=== PATIENT | female | born 1975 | race Caucasian/White ===

== ENCOUNTER 2018-09-07 11:35 | Inpatient (IN) | payer OTHER ==
[2018-09-07 13:35] VITALS: BMI 27.8
--- NOTE | 2018-09-07 14:17 | HP ---
COWS - Scale Resting Pulse: 2= [place] 101-120 Sweatin= Chills/Flushing Restless Observation: 5= Unable to Sit Still Pupil Size: 0= Normal to Room Light Bone or Joint Aches: 1= Mild Discomfort Runny Nose/ Eye Tearin= Runny Nose/Eyes GI Upset > 30mins: 5=Frequent Vomit/Diarrhea Tremor Observation: 0= None Yawning Observation: 0= None Anxiety or Irritability: 1=Feels Anxious/Irritable Goose Flesh Skin: 0=Smooth Skin COWS Score: 17 CIWA Score - Admission Criteria [facility]ASAS Guidelines: Admission for Medically Managed Detox: Requires at least one of the followin. CIWA greater than 12 2. Seizures within the past 24 hours 3. Delirium tremens within the past 24 hours 4. Hallucinations within the past 24 hours 5. Acute intervention needed for co occurring medical disorder 6. Acute intervention needed for co occurring psychiatric disorder 7. Severe withdrawal that cannot be handled at a lower level of care (continued vomiting, continued diarrhea, abnormal vital signs) requiring intravenous medication and/or fluids 8. Admission ROS [facility] Allergies/Adverse Reactions: Allergies Allergy/AdvReac Type Severity Reaction Status Date / Time tomato Allergy Intermediate Verified 09/07/18 14:39 History of Present Illness: pt here requesting detox for heroin use , reports use since age 23 , intermittent sobriety 10 years w/ rehab / detox , latest use yesterday early evening , current symptoms as above, IVDU in left UE , denies abscess ., denies OD , needles from pharmacy - her own DM needles - , denies sharing , denies re-using . heroin use 40 $ /day = 5 bags/day . REPORTS BLACKOUT 2 WEEKS AGO , THOUGHT WAS USING CANNABIS , THINKS IT WAS K2 , WOKE UP W/ BLOODY KNUCKLES AND BLOOD ON CHIN, DENIES CURRENT SYMPTOMS. cocaine : 3 x 20 $ /day IVDU denies other illicitsor etoh tobacco : 1 ppd fen : denies PMhx : DM I since 2005 , FM , DM neuropathy, asthma since 2008 ( Nh/ NI ) . lmp - 4 YEARS AGO , ON iud - [facility]RENA PSHx : karissa 2004 , C-sx 2006 psych ; bipolar d/o , depression , bpd , sad , Meds - see list SHx : lives alone , public assistance , finances habit through " favors for people " , legal : children in foster care, ACS , court 10/22/18 , children ages 11 & 12 A & W Search Terms: ck turcios, 1975 Search Date: 09/07/2018 02:36:22 PM The Drug Utilization Report below displays all of the controlled substance prescriptions, if any, that your patient has filled in the last twelve months. The information displayed on this report is compiled from pharmacy submissions to the Department, and accurately reflects the information as submitted by the pharmacies. This report was requested by: Shilpi Page | Reference #: [id number] Others' Prescriptions Patient Name: Ck Turcios Date: 1975 Address: [address] [place] [address] Sex: Female Rx Written Rx Dispensed Drug Quantity Days Supply Prescriber Name 08/31/2018 08/31/2018 lyrica 150 mg capsule 90 30 Sharron Espinosa MD 08/03/2018 08/03/2018 lyrica 150 mg capsule 90 30 Sharron Espinosa MD Patient Name: Ck Turcios Date: 1975 Address: [address] [id number] Sex: Female Rx Written Rx Dispensed Drug Quantity Days Supply Prescriber Name 05/02/2018 05/04/2018 lyrica 150 mg capsule 90 30 Jeffy Pang) 02/19/2018 02/20/2018 lyrica 100 mg capsule 90 30 Gaston Martin) 01/19/2018 01/19/2018 lyrica 100 mg capsule 90 30 Gaston Martin) 01/11/2018 01/11/2018 zolpidem tartrate 10 mg tablet 30 30 Rabia Valderrama MD * - Drugs marked with an asterisk are compound drugs. If the compound drug is made up of more than one controlled substance, then each controlled substance will be a separate row in the table. Exam Limitations: Clinical Condition - Ebola screening Have you traveled outside of the country in the last 21 days: No Have you had contact with anyone from an Ebola affected area: No Have you been sick,other than usual withdrawal symptoms: No - Review of Systems Constitutional: See HPI EENT: reports: See HPI, Nose Congestion, Other (myopia) Respiratory: reports: No Symptoms reported Cardiac: reports: No Symptoms Reported GI: reports: See HPI : reports: No Symptoms Reported Musculoskeletal: reports: See HPI Integumentary: reports: See HPI Neuro: reports: Headache Endocrine: reports: See HPI Psychiatric: reports: Orientated x3, Agitated, Anxious Patient History - Smoking Cessation Smoking history: Current every day smoker Have you smoked in the past 12 months: Yes Aproximately how many cigarettes per day: 20 Hx Chewing Tobacco Use: No Initiated information on smoking cessation: No - Substances Abused Heroin Route: Injection Frequency: Daily Amount used: 4-5 bags Age of first use: 24 Date of Last Use: 09/06/18 Cocaine Route: Injection Frequency: 1-2 times per week Amount used: $40 Age of first use: 19 Date of Last Use: 09/06/18 Family Disease History - Family Disease History Family Disease History: Diabetes: Grandparent (MGM ), Other: Mother (PUD ), Sister (1 , a & w ), Son (a & w ), Daughter (a & w ) Admission Physical Exam [facility] - Vital Signs Vital Signs: Vital Signs - 24 hr 09/07/18 13:34 Temperature 97.5 F L Pulse Rate 109 H Respiratory 20 Rate Blood Pressure 117/84 - Physical General Appearance: Yes: Severe Distress, Anxious HEENTM: Yes: EOMI, Hearing grossly Normal, Normocephalic, Normal Voice, Nasal Congestion, Rhinorrhea Respiratory: Yes: Chest Non-Tender, Lungs Clear, Normal Breath Sounds Neck: Yes: No masses,lesions,Nodules, Trachea in good position Cardiology: Yes: Regular Rhythm, Regular Rate, S1, S2, Tachycardia Abdominal: Yes: Non Tender, Soft Back: Yes: Normal Inspection Musculoskeletal: Yes: full range of Motion, Gait Steady Extremities: Yes: Normal Range of Motion, Non-Tender, Tremors Neurological: Yes: Motor Strength 5/5, Normal Mood/Affect Integumentary: Yes: Warm, Track [place] (LEFT FOREARM / ANTECUBITAL, NO ABSCESS) , Other (excoriations on dorsum of bilateral hands , superficial) - Diagnostic (1) Opioid dependence Current Visit: Yes Status: Acute Qualifiers: Substance use status: in withdrawal Qualified Code(s): F11.23 - Opioid dependence with withdrawal (2) Cocaine abuse Current Visit: Yes Status: Chronic (3) Nicotine dependence Current Visit: Yes Status: Chronic Qualifiers: Nicotine product type: cigarettes BHS Breath Alcohol Content Breath Alcohol Content: 0 Urine Pregancy Test - Result Urine Test Results: Negative - NO line present Urine Drug Screen - Results Drug Screen Negative: No Urine Drug Screen Results: MANDO-Cocaine, OPI-Opiates, FEN-Fentanyl Inpatient Rehab Admission - Rehab Decision to Admit Inpatient rehab admission?: No
[2018-09-07] MEDS ORDERED: METHOCARBAMOL 500 MG TABLET PO PRN (15:04)
[2018-09-07] MEDS ORDERED: ACETAMINOPHEN 325 MG TABLET (FP) PO PRN ×2 (15:04)
[2018-09-07] MEDS ORDERED: MAG HYDROX/AL HYDROX/SIMETH 30 ML UNIT-DOSE CUP PO PRN (15:04)
[2018-09-07] MEDS ORDERED: MAGNESIUM CITRATE 300 ML BOTTLE PO PRN (15:04)
[2018-09-07] MEDS ORDERED: NICOTINE POLACRILEX 2 MG GUM BUC PRN (15:04)
[2018-09-07] MEDS ORDERED: IBUPROFEN 400 MG TABLET (FP) PO PRN (15:04)
[2018-09-07] MEDS ORDERED: MAGNESIUM HYDROX 2400MG/30ML ORAL SUSPENSION 30 ML CUP PO PRN (15:04)
[2018-09-07] MEDS ORDERED: MENTHOL/PHENOL 1 EACH UD MM PRN (15:04)
[2018-09-07] MEDS ORDERED: cloNIDine HCL 0.1 MG TABLET PO PRN (15:04)
[2018-09-07] MEDS ORDERED: METHADONE HCL 10 MG TABLET (FOR DETOX USE ONLY) PO ONE (15:06)
[2018-09-07] MEDS ORDERED: ONDANSETRON *ODT* 4 MG TABLET SL ONE (15:07)
[2018-09-07] MEDS: metFORMIN HCL 500 MG TABLET (FP) PO SCH (18:11)
[2018-09-07] MEDS ORDERED: INSULIN SLIDING SCALE (NOVOLOG) 1 VIAL SQ SCH (22:00)
[2018-09-07] MEDS ORDERED: INSULIN (NOVOLOG) ASPART 100 UNITS/ML 10ML VIAL ONE (22:32)
[2018-09-07] MEDS: PREGABALIN 75 MG CAPSULE PO SCH (22:33)
[2018-09-07] MEDS: THIAMINE HCL 100 MG TABLET (FP) PO SCH (22:33)
[2018-09-07] MEDS: RANITIDINE HCL 150 MG TABLET (FP) PO SCH (22:34)
[2018-09-07] MEDS: INSULIN (LEVEMIR) 100 UNITS/ML UNITS SQ SCH (22:34)
[2018-09-07] MEDS: INSULIN SLIDING SCALE (NOVOLOG) 1 VIAL SQ SCH (22:34)
[2018-09-07] MEDS: MELATONIN 5 MG TABLETS PO PRN (22:35)
[2018-09-08] MEDS: PREGABALIN 75 MG CAPSULE PO SCH ×3 (05:29→22:13)
[2018-09-08] MEDS: INSULIN SLIDING SCALE (NOVOLOG) 1 VIAL SQ SCH ×4 (07:35→21:48)
[2018-09-08] MEDS: metFORMIN HCL 500 MG TABLET (FP) PO SCH ×2 (07:35→17:17)
[2018-09-08] MEDS: sitaGLIPtin PHOSPHATE 100 MG TABLET (FP) PO SCH (07:35)
[2018-09-08] MEDS ORDERED: METHADONE HCL 10 MG TABLET (FOR DETOX USE ONLY) PO ONE (10:00)
[2018-09-08] MEDS: PANTOPRAZOLE 40 MG TABLET (FP) PO SCH (10:31)
[2018-09-08] MEDS: PRENATAL VITAMINS W/ FOLIC ACID TABLET (FP) PO SCH (10:31)
[2018-09-08] MEDS: RANITIDINE HCL 150 MG TABLET (FP) PO SCH ×2 (10:31→22:13)
[2018-09-08 11:02] LABS: HEMATOCRIT 43.9 % (32.4-45.2); HEMOGLOBIN 14.5 GM/dL (10.7-15.3); MCH 30.4 pg (25.7-33.7); MEAN CELL VOLUME 91.9 fl (80-96); MEAN PLT VOLUME 9.6 fl (7.5-11.1); PLATELET COUNT 236 K/MM3 (134-434); RBC 4.78 M/mm3 (3.60-5.2); RDW 13.7 % (11.6-15.6); WHITE BLOOD COUNT 12.2 K/mm3 (4.0-10.0)
[2018-09-08 11:08] LABS: ALBUMIN 3.1 g/dl (3.4-5.0); ALK PHOS 81 U/L (45-117); ANION GAP 7 MMOL/L (8-16); BILIRUBIN,TOTAL 0.4 mg/dL (0.2-1); BLOOD UREA NITROGEN 10 mg/dL (7-18); CALCIUM 9.1 mg/dL (8.5-10.1); CHLORIDE 102 mmol/L (98-107); CO2 30 mmol/L (21-32); CREATININE 0.5 mg/dL (0.55-1.3); GLUCOSE,RANDOM 82 mg/dL (74-106); POTASSIUM 3.6 mmol/L (3.5-5.1); SGOT/AST 10 U/L (15-37); SGPT/ALT 15 U/L (13-61); SODIUM 138 mmol/L (136-145); TOT PROT 6.1 g/dl (6.4-8.2)
--- NOTE | 2018-09-08 13:37 | CONSULT ---
[facility] Psychiatric Consult - Data Date of interview: 09/08/18 Admission source: [facility] Identifying data: First admission to [facility] for this 43 y/o female self-referred for detoxification treatment (heroin, cocaine). Examined on . Patient is single, a mother of two, domiciled, unemployed and supported on Public Assistance. Substance Abuse History: Confirmed by the patient. Ms Turcios endorses an extensive history of subtance use (onset of cocaine abuse at age 19 + heroin abuse since age 24). Both drugs are used IVDU. patient smokes one pack of cigaretes daily. Additional details in current [facility] report as follows : Smoking Cessation. Smoking history: Current every day smoker. Have you smoked in the past 12 months: Yes. Aproximately how many cigarettes per day: 20. Hx Chewing Tobacco Use: No. Initiated information on smoking cessation: No. - Substances Abused. Heroin. Route: Injection. Frequency: Daily. Amount used: 4-5 bags. Age of first use: 24. Date of Last Use: 09/06/18. Cocaine. Route: Injection. Frequency: 1-2 times per week. Amount used: $40. Age of first use : 19. Date of Last Use: 09/06/18 Medical History: Consistent with diabetes mellitus, bronchial asthma fibromyalgia and peripheral neuropathy. Psychiatric History: Patient reports a history of 3-5 psychiatric hospitalizations ([facility], [facility]). First psychiatric hospitalization was in 2017 (self-report). Diagnosed with Schizoaffective Disorder + PTSD. Ms Turcios endorses treatment with lithium 600 mg /bid + risperdal 3 mg/bid + klonopin (dose unknown) and zolpidem 10 mg/hs. Sees a psychiatrist, Dr French, at [facility] at [address] [place] [address] in [facility]. Physical/Sexual Abuse/Trauma History: Not discussed. Patient declines. Additional Comment: Urine Drug Screen Results: MANDO-Cocaine, OPI-Opiates, FEN- Fentanyl. Noted. Mental Status Exam - Mental Status Exam Alert and Oriented to: Time, Place, Person Cognitive Function: Good Patient Appearance: Well Groomed Mood: Nervous, Withdrawn, Anxious Affect: Mood Congruent, Constricted Patient Behavior: Fatigued, Appropriate, Cooperative Speech Pattern: Clear Voice Loudness: Normal Thought Process: Goal Oriented Thought Disorder: Not Present Hallucinations: Denies Suicidal Ideation: Denies Homicidal Ideation: Denies Insight/Judgement: Poor Sleep: Poorly, Difficulty falling asleep Appetite: Good Gait/Station: Normal Psychiatric Findings - Problem List (Flushing 1, 2,3) (1) Opioid dependence Current Visit: Yes Status: Chronic Qualifiers: Substance use status: in withdrawal Qualified Code(s): F11.23 - Opioid dependence with withdrawal (2) Nicotine dependence Current Visit: Yes Status: Chronic Qualifiers: Nicotine product type: cigarettes (3) Cocaine dependence Current Visit: Yes Status: Chronic (4) Substance induced mood disorder Current Visit: Yes Status: Chronic (5) Schizoaffective disorder Current Visit: Yes Status: Chronic Comment: By history. On medications. (6) History of posttraumatic stress disorder (PTSD) Current Visit: Yes Status: Chronic (7) Insomnia Current Visit: Yes Status: Chronic - Initial Treatment Plan Initial Treatment Plan: Psychoeducation. Sleep hygiene. Detoxification. NA meetings. Support. Groups. Relapse prevention : discussed with patient. Medications confirmed via review of most recent pharmacy claims (noted refills for lithium, trileptal, risperdal issued on 09/03/[address] Joshua kang) . [place] is held (level is requested/pending). Resumed risperdal 2 mg po hs + 1 mg po am and oxcarbazepine 600 mg po bid. Side effects/benefits of both drugs are discussed with the patient. This includes the risk of abnormal involuntary movements, endocrine issues (galactorrhea, gynecomastia, sexual dysfunction), akathisia, dyskinesia, neuroleptic malignant syndrome, cardiovascular adverse events and hyponatremia (trileptal). Patient expressed her agreement with this plan of care. Consent (verbal) given to MD. Terrell.
--- NOTE | 2018-09-08 14:56 | PN ---
S COWS - Scale Resting Pulse: 1= [place] 81-100 Sweatin=Flushed/Facial Moisture Restless Observation: 1= Difficult to Sit Still Pupil Size: 0= Normal to Room Light Bone or Joint Aches: 2= Severe Diffuse Aches Runny Nose/ Eye Tearin= Nasal Congestion GI Upset > 30mins: 2= Nausea/Diarrhea Tremor Observation of Outstretched Hands: 2= Slight Tremor Visible Yawning Observation: 0= None Anxiety or Irritability: 2=Irritable/Anxious Goose Flesh Skin: 3=Piloerection COWS Score: 16 BHS Progress Note (SOAP) Subjective: Tremors, sweats, body aches, nausea Objective: 09/08/18 14:53 Vital Signs - 8 hr 09/08/18 09/08/18 09/08/18 08:34 09:47 14:36 Temperature 98.1 F 98.2 F 98.4 F Pulse Rate 95 H 107 H 96 H Respiratory 20 16 18 Rate Blood Pressure 106/71 107/75 122/69 Laboratory Last Values WBC 12.2 K/mm3 (4.0-10.0) H 09/08/18 07:45 RBC 4.78 M/mm3 (3.60-5.2) 09/08/18 07:45 Hgb 14.5 GM/dL (10.7-15.3) 09/08/18 07:45 Hct 43.9 % (32.4-45.2) 09/08/18 07:45 MCV 91.9 fl (80-96) 09/08/18 07:45 MCH 30.4 pg (25.7-33.7) 09/08/18 07:45 MCHC 33.0 g/dl (32.0-36.0) 09/08/18 07:45 RDW 13.7 % (11.6-15.6) 09/08/18 07:45 Plt Count 236 K/MM3 (134-434) 09/08/18 07:45 MPV 9.6 fl (7.5-11.1) 09/08/18 07:45 Sodium 138 mmol/L (136-145) 09/08/18 07:45 Potassium 3.6 mmol/L (3.5-5.1) 09/08/18 07:45 Chloride 102 mmol/L (98-107) 09/08/18 07:45 Carbon Dioxide 30 mmol/L (21-32) 09/08/18 07:45 Anion Gap 7 MMOL/L (8-16) L 09/08/18 07:45 BUN 10 mg/dL (7-18) 09/08/18 07:45 Creatinine 0.5 mg/dL (0.55-1.3) L 09/08/18 07:45 Creat Clearance w eGFR 135.97 (>60) 09/08/18 07:45 POC Glucometer 186 UNITS (80-120) 09/08/18 11:39 Random Glucose 82 mg/dL (74-106) 09/08/18 07:45 Calcium 9.1 mg/dL (8.5-10.1) 09/08/18 07:45 Total Bilirubin 0.4 mg/dL (0.2-1) 09/08/18 07:45 AST 10 U/L (15-37) L 09/08/18 07:45 ALT 15 U/L (13-61) 09/08/18 07:45 Alkaline Phosphatase 81 U/L (45-117) 09/08/18 07:45 Total Protein 6.1 g/dl (6.4-8.2) L 09/08/18 07:45 Albumin 3.1 g/dl (3.4-5.0) L 09/08/18 07:45 RPR Titer Nonreactive (NONREACTIVE) 09/08/18 07:45 Labs noted Elevated white count, denies symptoms VSS, no cough, dysurea or open wounds Assessment: 09/08/18 14:55 Withdrawal sx Leukocytosis Plan: Continue detox Increase PO fluids Repeat CBC UA pending
[2018-09-08] MEDS ORDERED: INSULIN (NOVOLOG) ASPART 100 UNITS/ML 10ML VIAL ONE (17:52)
[2018-09-08] MEDS ORDERED: OXCARBAZEPINE 600 MG PO SCH (22:00)
[2018-09-08] MEDS: INSULIN (LEVEMIR) 100 UNITS/ML UNITS SQ SCH (22:13)
[2018-09-08] MEDS: risperiDONE 2 MG TABLET PO SCH (22:13)
[2018-09-08] MEDS: THIAMINE HCL 100 MG TABLET (FP) PO SCH (22:13)
[2018-09-08] MEDS: MELATONIN 5 MG TABLETS PO PRN (22:14)
[2018-09-09] MEDS: PREGABALIN 75 MG CAPSULE PO SCH ×3 (05:54→22:02)
[2018-09-09] MEDS: sitaGLIPtin PHOSPHATE 100 MG TABLET (FP) PO SCH (08:11)
[2018-09-09] MEDS: metFORMIN HCL 500 MG TABLET (FP) PO SCH ×2 (08:11→17:57)
[2018-09-09] MEDS: INSULIN SLIDING SCALE (NOVOLOG) 1 VIAL SQ SCH ×4 (08:12→22:04)
[2018-09-09] MEDS ORDERED: METHADONE HCL 10 MG TABLET (FOR DETOX USE ONLY) PO ONE (10:00)
[2018-09-09] MEDS: PANTOPRAZOLE 40 MG TABLET (FP) PO SCH (10:26)
[2018-09-09] MEDS: risperiDONE 1 MG TABLET (FP) PO SCH (10:26)
[2018-09-09] MEDS: RANITIDINE HCL 150 MG TABLET (FP) PO SCH ×2 (10:26→22:02)
[2018-09-09] MEDS: PRENATAL VITAMINS W/ FOLIC ACID TABLET (FP) PO SCH (10:26)
[2018-09-09] MEDS ORDERED: INSULIN (NOVOLOG) ASPART 100 UNITS/ML 10ML VIAL ONE ×3 (11:12→22:58)
[2018-09-09] MEDS ORDERED: NYSTATIN 100,000 UNIT/GM TOPICAL CREAM 15 GM TUBE TP SCH (12:00)
--- NOTE | 2018-09-09 13:49 | PN ---
BHS COWS - Scale Resting Pulse: 1= [place] 81-100 Sweatin=Flushed/Facial Moisture Restless Observation: 1= Difficult to Sit Still Pupil Size: 0= Normal to Room Light Bone or Joint Aches: 2= Severe Diffuse Aches Runny Nose/ Eye Tearin= Runny Nose/Eyes GI Upset > 30mins: 0= None Tremor Observation of Outstretched Hands: 2= Slight Tremor Visible Yawning Observation: 1= 1-2x During Session Anxiety or Irritability: 1=Feels Anxious/Irritable Goose Flesh Skin: 0=Smooth Skin COWS Score: 12 BHS Progress Note (SOAP) Subjective: shakes sweats body aches right upper arm rash Objective: 09/09/18 13:48 Vital Signs Temperature 98.2 F 09/09/18 10:03 Pulse Rate 89 09/09/18 10:03 Respiratory Rate 18 09/09/18 10:03 Blood Pressure 102/74 09/09/18 10:03 O2 Sat by Pulse Oximetry (%) Laboratory Tests 09/07/18 09/07/18 09/07/18 15:02 18:08 21:25 WBC RBC Hgb Hct MCV MCH MCHC RDW Plt Count MPV Sodium Potassium Chloride Carbon Dioxide Anion Gap BUN Creatinine Creat Clearance w eGFR POC Glucometer 274 360 291 Random Glucose Calcium Total Bilirubin AST ALT Alkaline Phosphatase Total Protein Albumin Urine Color Urine Appearance Urine pH Ur Specific [place] Urine Protein Urine Glucose (UA) Urine Ketones Urine Blood Urine Nitrite Urine Bilirubin Urine Urobilinogen Ur Leukocyte Esterase RPR Titer 09/08/18 09/08/18 09/08/18 05:28 07:45 07:45 WBC 12.2 H RBC 4.78 Hgb 14.5 Hct 43.9 MCV 91.9 MCH 30.4 MCHC 33.0 RDW 13.7 Plt Count 236 MPV 9.6 Sodium 138 Potassium 3.6 Chloride 102 Carbon Dioxide 30 Anion Gap 7 L BUN 10 Creatinine 0.5 L Creat Clearance w eGFR 135.97 POC Glucometer 97 Random Glucose 82 Calcium 9.1 Total Bilirubin 0.4 AST 10 L ALT 15 Alkaline Phosphatase 81 Total Protein 6.1 L Albumin 3.1 L Urine Color Urine Appearance Urine pH Ur Specific [place] Urine Protein Urine Glucose (UA) Urine Ketones Urine Blood Urine Nitrite Urine Bilirubin Urine Urobilinogen Ur Leukocyte Esterase RPR Titer 09/08/18 09/08/18 09/08/18 07:45 11:39 16:22 WBC RBC Hgb Hct MCV MCH MCHC RDW Plt Count MPV Sodium Potassium Chloride Carbon Dioxide Anion Gap BUN Creatinine Creat Clearance w eGFR POC Glucometer 186 298 Random Glucose Calcium Total Bilirubin AST ALT Alkaline Phosphatase Total Protein Albumin Urine Color Urine Appearance Urine pH Ur Specific [place] Urine Protein Urine Glucose (UA) Urine Ketones Urine Blood Urine Nitrite Urine Bilirubin Urine Urobilinogen Ur Leukocyte Esterase RPR Titer Nonreactive 09/08/18 09/09/18 09/09/18 21:38 06:47 07:50 WBC RBC Hgb Hct MCV MCH MCHC RDW Plt Count MPV Sodium Potassium Chloride Carbon Dioxide Anion Gap BUN Creatinine Creat Clearance w eGFR POC Glucometer 183 114 Random Glucose Calcium Total Bilirubin AST ALT Alkaline Phosphatase Total Protein Albumin Urine Color Yellow Urine Appearance Clear Urine pH 6.5 Ur Specific [place] 1.007 L Urine Protein Negative Urine Glucose (UA) Negative Urine Ketones Negative Urine Blood Negative Urine Nitrite Negative Urine Bilirubin Negative Urine Urobilinogen 0.2 Ur Leukocyte Esterase 1+ H RPR Titer 09/09/18 11:08 WBC RBC Hgb Hct MCV MCH MCHC RDW Plt Count MPV Sodium Potassium Chloride Carbon Dioxide Anion Gap BUN Creatinine Creat Clearance w eGFR POC Glucometer 232 Random Glucose Calcium Total Bilirubin AST ALT Alkaline Phosphatase Total Protein Albumin Urine Color Urine Appearance Urine pH Ur Specific [place] Urine Protein Urine Glucose (UA) Urine Ketones Urine Blood Urine Nitrite Urine Bilirubin Urine Urobilinogen Ur Leukocyte Esterase RPR Titer aaox3 ambulating no acute distress Assessment: 09/09/18 13:48 withdrawal sx rash to right upper arm appears to be a ringworm/red and circular Plan: continue detox increase fluids lotrimin cream ordered
[2018-09-09 14:23] LABS: PH,URINE 6.5 (5.0-8.0); URINE APPEARANCE Clear; URINE BILIRUBIN Negative (NEGATIVE); URINE COLOR Yellow; URINE GLUCOSE (UA) Negative (NEGATIVE); URINE KETONE Negative (NEGATIVE); URINE LEUK ESTERASE 1+ (NEGATIVE); URINE NITRITE Negative (NEGATIVE); URINE PROTEIN Negative (NEGATIVE); URINE UROBILINOGEN 0.2 mg/dL (0.2-1.0)
[2018-09-09 14:56] LABS: EPI CELLS 0-5 /HPF (0-5); URINE BACTERIA 1+ /hpf (NEGATIVE); URINE RBC 0-3 /hpf (0-4); URINE WBC 0-5 /hpf (0-5)
[2018-09-09] MEDS: CLOTRIMAZOLE 1% CREAM 15 GM TUBE TP SCH ×2 (16:07→22:04)
[2018-09-09] MEDS: MELATONIN 5 MG TABLETS PO PRN (22:02)
[2018-09-09] MEDS: THIAMINE HCL 100 MG TABLET (FP) PO SCH (22:02)
[2018-09-09] MEDS: risperiDONE 2 MG TABLET PO SCH (22:02)
[2018-09-09] MEDS: INSULIN (LEVEMIR) 100 UNITS/ML UNITS SQ SCH (22:03)
[2018-09-10] MEDS: sitaGLIPtin PHOSPHATE 100 MG TABLET (FP) PO SCH (06:15)
[2018-09-10] MEDS: PREGABALIN 75 MG CAPSULE PO SCH ×3 (06:15→22:18)
[2018-09-10] MEDS: metFORMIN HCL 500 MG TABLET (FP) PO SCH ×2 (06:15→16:58)
[2018-09-10] MEDS: INSULIN SLIDING SCALE (NOVOLOG) 1 VIAL SQ SCH ×4 (06:59→22:22)
[2018-09-10] MEDS ORDERED: METHADONE HCL 10 MG TABLET (FOR DETOX USE ONLY) PO ONE (10:00)
[2018-09-10 10:04] LABS: BASO % 0.3 % (0-2.0); HEMATOCRIT 43.8 % (32.4-45.2); HEMOGLOBIN 14.4 GM/dL (10.7-15.3); LYMPH % 41.7 % (8-40); MCH 30.8 pg (25.7-33.7); MCHC 32.8 g/dl (32.0-36.0); MEAN CELL VOLUME 93.9 fl (80-96); MEAN PLT VOLUME 9.6 fl (7.5-11.1); MONO % 7.3 % (3.8-10.2); NEUT % 48.7 % (42.8-82.8); PLATELET COUNT 222 K/MM3 (134-434); RBC 4.67 M/mm3 (3.60-5.2); RDW 13.7 % (11.6-15.6); WHITE BLOOD COUNT 10.9 K/mm3 (4.0-10.0)
[2018-09-10] MEDS: CLOTRIMAZOLE 1% CREAM 15 GM TUBE TP SCH ×2 (10:15→22:17)
[2018-09-10] MEDS: PANTOPRAZOLE 40 MG TABLET (FP) PO SCH (10:15)
[2018-09-10] MEDS: risperiDONE 1 MG TABLET (FP) PO SCH (10:15)
[2018-09-10] MEDS: RANITIDINE HCL 150 MG TABLET (FP) PO SCH ×2 (10:15→22:18)
[2018-09-10] MEDS: PRENATAL VITAMINS W/ FOLIC ACID TABLET (FP) PO SCH (10:15)
--- NOTE | 2018-09-10 10:29 | PN ---
BHS Progress Note (SOAP) Subjective: blister on my finger burst feeling better sweats Objective: 09/10/18 10:24 Vital Signs Temperature 98.8 F 09/10/18 08:58 Pulse Rate 96 H 09/10/18 08:58 Respiratory Rate 18 09/10/18 08:58 Blood Pressure 98/67 09/10/18 08:58 O2 Sat by Pulse Oximetry (%) Laboratory Tests 09/07/18 09/07/18 09/07/18 15:02 18:08 21:25 WBC RBC Hgb Hct MCV MCH MCHC RDW Plt Count MPV Absolute Neuts (auto) Neutrophils % Lymphocytes % Monocytes % Eosinophils % Basophils % Nucleated RBC % Sodium Potassium Chloride Carbon Dioxide Anion Gap BUN Creatinine Creat Clearance w eGFR POC Glucometer 274 360 291 Random Glucose Calcium Total Bilirubin AST ALT Alkaline Phosphatase Total Protein Albumin Urine Color Urine Appearance Urine pH Ur Specific [place] Urine Protein Urine Glucose (UA) Urine Ketones Urine Blood Urine Nitrite Urine Bilirubin Urine Urobilinogen Ur Leukocyte Esterase Urine WBC (Auto) Urine RBC (Auto) Urine Casts (Auto) U Epithel Cells (Auto) Urine Bacteria (Auto) RPR Titer 09/08/18 09/08/18 09/08/18 05:28 07:45 07:45 WBC 12.2 H RBC 4.78 Hgb 14.5 Hct 43.9 MCV 91.9 MCH 30.4 MCHC 33.0 RDW 13.7 Plt Count 236 MPV 9.6 Absolute Neuts (auto) Neutrophils % Lymphocytes % Monocytes % Eosinophils % Basophils % Nucleated RBC % Sodium 138 Potassium 3.6 Chloride 102 Carbon Dioxide 30 Anion Gap 7 L BUN 10 Creatinine 0.5 L Creat Clearance w eGFR 135.97 POC Glucometer 97 Random Glucose 82 Calcium 9.1 Total Bilirubin 0.4 AST 10 L ALT 15 Alkaline Phosphatase 81 Total Protein 6.1 L Albumin 3.1 L Urine Color Urine Appearance Urine pH Ur Specific [place] Urine Protein Urine Glucose (UA) Urine Ketones Urine Blood Urine Nitrite Urine Bilirubin Urine Urobilinogen Ur Leukocyte Esterase Urine WBC (Auto) Urine RBC (Auto) Urine Casts (Auto) U Epithel Cells (Auto) Urine Bacteria (Auto) RPR Titer 09/08/18 09/08/18 09/08/18 07:45 11:39 16:22 WBC RBC Hgb Hct MCV MCH MCHC RDW Plt Count MPV Absolute Neuts (auto) Neutrophils % Lymphocytes % Monocytes % Eosinophils % Basophils % Nucleated RBC % Sodium Potassium Chloride Carbon Dioxide Anion Gap BUN Creatinine Creat Clearance w eGFR POC Glucometer 186 298 Random Glucose Calcium Total Bilirubin AST ALT Alkaline Phosphatase Total Protein Albumin Urine Color Urine Appearance Urine pH Ur Specific [place] Urine Protein Urine Glucose (UA) Urine Ketones Urine Blood Urine Nitrite Urine Bilirubin Urine Urobilinogen Ur Leukocyte Esterase Urine WBC (Auto) Urine RBC (Auto) Urine Casts (Auto) U Epithel Cells (Auto) Urine Bacteria (Auto) RPR Titer Nonreactive 09/08/18 09/09/18 09/09/18 21:38 06:47 07:50 WBC RBC Hgb Hct MCV MCH MCHC RDW Plt Count MPV Absolute Neuts (auto) Neutrophils % Lymphocytes % Monocytes % Eosinophils % Basophils % Nucleated RBC % Sodium Potassium Chloride Carbon Dioxide Anion Gap BUN Creatinine Creat Clearance w eGFR POC Glucometer 183 114 Random Glucose Calcium Total Bilirubin AST ALT Alkaline Phosphatase Total Protein Albumin Urine Color Yellow Urine Appearance Clear Urine pH 6.5 Ur Specific [place] 1.010 Urine Protein Negative Urine Glucose (UA) Negative Urine Ketones Negative Urine Blood Negative Urine Nitrite Negative Urine Bilirubin Negative Urine Urobilinogen 0.2 Ur Leukocyte Esterase 1+ H Urine WBC (Auto) 0-5 Urine RBC (Auto) 0-3 Urine Casts (Auto) No Result Required. U Epithel Cells (Auto) 0-5 Urine Bacteria (Auto) 1+ RPR Titer 09/09/18 09/09/18 09/10/18 11:08 21:58 06:14 WBC RBC Hgb Hct MCV MCH MCHC RDW Plt Count MPV Absolute Neuts (auto) Neutrophils % Lymphocytes % Monocytes % Eosinophils % Basophils % Nucleated RBC % Sodium Potassium Chloride Carbon Dioxide Anion Gap BUN Creatinine Creat Clearance w eGFR POC Glucometer 232 316 87 Random Glucose Calcium Total Bilirubin AST ALT Alkaline Phosphatase Total Protein Albumin Urine Color Urine Appearance Urine pH Ur Specific [place] Urine Protein Urine Glucose (UA) Urine Ketones Urine Blood Urine Nitrite Urine Bilirubin Urine Urobilinogen Ur Leukocyte Esterase Urine WBC (Auto) Urine RBC (Auto) Urine Casts (Auto) U Epithel Cells (Auto) Urine Bacteria (Auto) RPR Titer 09/10/18 07:00 WBC 10.9 H RBC 4.67 Hgb 14.4 Hct 43.8 MCV 93.9 MCH 30.8 MCHC 32.8 RDW 13.7 Plt Count 222 MPV 9.6 Absolute Neuts (auto) 5.3 Neutrophils % 48.7 Lymphocytes % 41.7 H Monocytes % 7.3 Eosinophils % 2.0 Basophils % 0.3 Nucleated RBC % 0 Sodium Potassium Chloride Carbon Dioxide Anion Gap BUN Creatinine Creat Clearance w eGFR POC Glucometer Random Glucose Calcium Total Bilirubin AST ALT Alkaline Phosphatase Total Protein Albumin Urine Color Urine Appearance Urine pH Ur Specific [place] Urine Protein Urine Glucose (UA) Urine Ketones Urine Blood Urine Nitrite Urine Bilirubin Urine Urobilinogen Ur Leukocyte Esterase Urine WBC (Auto) Urine RBC (Auto) Urine Casts (Auto) U Epithel Cells (Auto) Urine Bacteria (Auto) RPR Titer aaox3 ambulating no acute distress Assessment: 09/10/18 10:29 mild withdrawal sx Plan: continue detox increase fluids bacitracin oint d/c in am
[2018-09-10] MEDS: BACITRACIN 0.9 GM PACKET TP SCH (11:21)
[2018-09-10] MEDS ORDERED: INSULIN (NOVOLOG) ASPART 100 UNITS/ML 10ML VIAL ONE (16:53)
[2018-09-10] MEDS: risperiDONE 2 MG TABLET PO SCH (22:18)
[2018-09-10] MEDS: THIAMINE HCL 100 MG TABLET (FP) PO SCH (22:18)
[2018-09-10] MEDS: MELATONIN 5 MG TABLETS PO PRN (22:19)
[2018-09-10] MEDS: INSULIN (LEVEMIR) 100 UNITS/ML UNITS SQ SCH (22:23)
[2018-09-11] MEDS: PREGABALIN 75 MG CAPSULE PO SCH (05:30)
[2018-09-11] MEDS ORDERED: METHADONE HCL 5 MG TABLET (FOR DETOX USE ONLY) PO ONE (06:00)
[2018-09-11] MEDS: sitaGLIPtin PHOSPHATE 100 MG TABLET (FP) PO SCH (07:16)
[2018-09-11] MEDS: metFORMIN HCL 500 MG TABLET (FP) PO SCH (07:16)
[2018-09-11] MEDS: INSULIN SLIDING SCALE (NOVOLOG) 1 VIAL SQ SCH ×2 (07:17→11:13)
--- NOTE | 2018-09-11 09:05 | DS ---
[facility] Detox Discharge Summary Admission Date: 09/07/18 Discharge Date: 09/11/18 - History Present History: Cocaine Dependence, Opioid Dependence - Physical Exam Results Vital Signs: Vital Signs Temperature 97.9 F 09/11/18 06:00 Pulse Rate 98 H 09/11/18 06:00 Respiratory Rate 18 09/11/18 06:00 Blood Pressure 106/65 09/11/18 06:00 O2 Sat by Pulse Oximetry (%) - Treatment Hospital Course: Detox Protocol Followed, Detoxed Safely, Responded well, Discharged Condition Good, Rehab Referral Accepted - Medication Discharge Medications: Ambulatory Orders Metformin HCl [Glucophage] 1,000 mg PO BID 07/23/18 Pregabalin [Lyrica -] 150 mg PO TID 07/23/18 Risperidone [Risperdal] 3 mg PO HS 07/23/18 Clonidine HCl 0.2 mg PO HS 09/07/18 Disulfiram [Antabuse] 500 mg PO DAILY 09/07/18 Famotidine [Pepcid -] 20 mg PO BID 09/07/18 Insulin Glargine,Hum.rec.anlog [Lantus] 19 unit SQ HS 09/07/18 [place] Carbonate [Eskalith -] 450 mg PO BID 09/07/18 Oxcarbazepine [Oxtellar Xr] 600 mg PO BID 09/07/18 Pantoprazole Sodium [Protonix -] 40 mg PO DAILY 09/07/18 Sitagliptin Phosphate [Januvia -] 100 mg PO DAILY@0700 09/07/18 - Diagnosis (1) Cocaine dependence Current Visit: Yes Status: Chronic Qualifiers: Substance use status: uncomplicated Qualified Code(s): F14.20 - Cocaine dependence, uncomplicated (2) History of posttraumatic stress disorder (PTSD) Current Visit: Yes Status: Chronic (3) Insomnia Current Visit: Yes Status: Chronic (4) Nicotine dependence Current Visit: Yes Status: Chronic Qualifiers: Nicotine product type: cigarettes Substance use status: uncomplicated Qualified Code(s): F17.210 - Nicotine dependence, cigarettes, uncomplicated (5) Opioid dependence Current Visit: Yes Status: Chronic Qualifiers: Substance use status: uncomplicated Qualified Code(s): F11.20 - Opioid dependence, uncomplicated (6) Schizoaffective disorder Current Visit: Yes Status: Chronic (7) Substance induced mood disorder Current Visit: Yes Status: Chronic - AMA Did Patient Leave Against Medical Advice: No (referred to [facility] )
[2018-09-11 09:44] VITALS: BP 97/61; PULSE 88; TEMP 98.1
[2018-09-11] MEDS: risperiDONE 1 MG TABLET (FP) PO SCH (10:02)
[2018-09-11] MEDS: RANITIDINE HCL 150 MG TABLET (FP) PO SCH (10:02)
[2018-09-11] MEDS: PANTOPRAZOLE 40 MG TABLET (FP) PO SCH (10:03)
[2018-09-11] MEDS: BACITRACIN 0.9 GM PACKET TP SCH (10:03)
[2018-09-11] MEDS: CLOTRIMAZOLE 1% CREAM 15 GM TUBE TP SCH (10:03)
[2018-09-11] MEDS: PRENATAL VITAMINS W/ FOLIC ACID TABLET (FP) PO SCH (10:03)
--- NOTE | 2018-09-11 18:16 | PN ---
S Progress Note Note: Psychiatry Attending's note (follow-up) : [employer] level = 0.2 Indicative of non-adherence to medication. Noted report of discharge on this date. Follow-up with [facility] psychiatrist, Dr French. For continuity of care (scripts not needed).
== END 2018-09-11 11:23 | disposition home or self-care (01) | DRG 773 ==
LOC: YASAS 11:35 → Y6N 15:15
PROVIDERS: ADMIT Surgery; ATTEND Surgery
PROC: HZ2ZZZZ Detoxification Services for Substance Abuse Treatment (ICD-10-PCS; principal; 2018-09-07)
DX: F11.23 Opioid dependence with withdrawal (principal); F14.20 Cocaine dependence, uncomplicated; F17.210 Nicotine dependence, cigarettes, uncomplicated; F25.9 Schizoaffective disorder, unspecified; F31.9 Bipolar disorder, unspecified; F19.24 Other psychoactive substance dependence with psychoactive substance-induced mood disorder; G47.00 Insomnia, unspecified; R21 Rash and other nonspecific skin eruption; D72.819 Decreased white blood cell count, unspecified; E10.9 Type 1 diabetes mellitus without complications; G62.9 Polyneuropathy, unspecified; J45.909 Unspecified asthma, uncomplicated; Z86.59 Personal history of other mental and behavioral disorders; Z79.4 Long term (current) use of insulin
CPT/HCPCS: 36415; 80053; 80178; 81003; 82962; 85025; 85027; 86593; J2794; Q0162

== ENCOUNTER 2021-03-12 12:52 | Inpatient (IN) | payer OTHER ==
[2021-03-12 14:33] VITALS: BMI 30.9
[2021-03-12] MEDS ORDERED: NICOTINE POLACRILEX 4 MG GUM BUC PRN (15:17)
[2021-03-12] MEDS ORDERED: cloNIDine HCL 0.1 MG TABLET PO PRN (15:17)
[2021-03-12] MEDS ORDERED: ACETAMINOPHEN 325 MG TABLET (FP) PO PRN ×2 (15:17)
[2021-03-12] MEDS ORDERED: IBUPROFEN 400 MG TABLET (FP) PO PRN (15:17)
[2021-03-12] MEDS ORDERED: NALOXONE (NARCAN) HCL 4 MG/0.1 ML SPRAY NS PRN (15:17)
[2021-03-12] MEDS ORDERED: ONDANSETRON *ODT* 4 MG TABLET SL PRN (15:17)
[2021-03-12] MEDS ORDERED: MAGNESIUM CITRATE 300 ML BOTTLE PO PRN (15:17)
[2021-03-12] MEDS ORDERED: BISMUTH SUBSALICYLATE 524 MG/30 ML PO PRN (15:17)
[2021-03-12] MEDS ORDERED: MAGNESIUM HYDROX 2400MG/30ML ORAL SUSPENSION 30 ML CUP PO PRN (15:17)
[2021-03-12] MEDS ORDERED: MAG HYDROX/AL HYDROX/SIMETH 30 ML UNIT-DOSE CUP PO PRN (15:17)
[2021-03-12] MEDS ORDERED: MENTHOL/PHENOL 1 EACH UD MM PRN (15:17)
[2021-03-12] MEDS ORDERED: methaDONE HCL 10 MG TABLET (FOR DETOX USE ONLY) PO ONE (15:45)
[2021-03-12] MEDS ORDERED: INSULIN SLIDING SCALE (NOVOLOG) 1 VIAL SQ ONE (17:08)
[2021-03-12] MEDS: metFORMIN HCL 500 MG TABLET (FP) PO SCH (17:41)
[2021-03-12] MEDS: INSULIN (NOVOLOG) ASPART 100 UNITS/ML 10ML VIAL SQ SCH (17:42)
[2021-03-12] MEDS: diazePAM 5 MG TABLET PO PRN (20:50)
[2021-03-12] MEDS: NICOTINE 10 MG CARTRIDGE (INHALER) IH PRN (20:50)
[2021-03-12] MEDS ORDERED: PATIENT'S OWN MEDICATION (NON-FORMULARY) (Metformin Hcl [Glucophage] 1,000 MG Tablet) PO SCH (22:00)
[2021-03-12] MEDS ORDERED: PATIENT'S OWN MEDICATION (NON-FORMULARY) (Insulin Glargine,Hum.Rec.Anlog [Lantus] 100 UNIT SQ SCH (22:00)
[2021-03-12] MEDS: GABAPENTIN 100 MG CAPSULE PO SCH (22:27)
[2021-03-12] MEDS: ATORVASTATIN CA 10 MG TABLET (FP) PO SCH (22:27)
[2021-03-12] MEDS: THIAMINE HCL 100 MG TABLET (FP) PO SCH (22:27)
[2021-03-12] MEDS: MELATONIN 5 MG TABLETS PO SCH (22:28)
[2021-03-12] MEDS: METHOCARBAMOL 500 MG TABLET PO PRN (22:28)
[2021-03-12] MEDS: hydrOXYzine PAMOATE 25 MG CAPSULE (FP) PO PRN (22:29)
[2021-03-13] MEDS: GABAPENTIN 100 MG CAPSULE PO SCH ×3 (05:50→22:04)
[2021-03-13] MEDS: hydrOXYzine PAMOATE 25 MG CAPSULE (FP) PO PRN (05:52)
[2021-03-13] MEDS: diazePAM 5 MG TABLET PO PRN ×3 (05:52→22:06)
[2021-03-13] MEDS: metFORMIN HCL 500 MG TABLET (FP) PO SCH ×2 (06:59→17:29)
[2021-03-13] MEDS: INSULIN (NOVOLOG) ASPART 100 UNITS/ML 10ML VIAL SQ SCH ×3 (07:00→17:33)
[2021-03-13] MEDS ORDERED: methaDONE HCL 10 MG TABLET (FOR DETOX USE ONLY) ONE (09:31)
[2021-03-13] MEDS ORDERED: PNEUMOC 13-VAL CONJ-DIP CRM/PF 0.5 ML DISP.SYRIN IM ONE (10:00)
[2021-03-13] MEDS: METHOCARBAMOL 500 MG TABLET PO PRN ×2 (10:34→17:31)
[2021-03-13] MEDS: PRENATAL VITAMINS W/ FOLIC ACID TABLET (FP) PO SCH (10:34)
[2021-03-13] MEDS: PANTOPRAZOLE 40 MG TABLET PO SCH (10:34)
[2021-03-13] MEDS ORDERED: PNEUMOCOCCAL 23 VACCINE 0.5 ML VIAL IM ONE (12:00)
[2021-03-13] MEDS ORDERED: FLU VACC QS2021-22(6MOS UP)/PF 60 MCG/0.5 ML SYRINGE IM ONE (12:00)
[2021-03-13] MEDS: risperiDONE 1 MG TABLET PO SCH ×2 (12:34→22:05)
[2021-03-13 14:35] LABS: HEMATOCRIT 46.1 % (32.4-45.2); HEMOGLOBIN 15.7 GM/dL (10.7-15.3); MCH 30.1 pg (25.7-33.7); MEAN CELL VOLUME 88.7 fl (80-96); MEAN PLT VOLUME 9.3 fl (7.5-11.1); PLATELET COUNT 406 10^3/uL (134-434); RDW 15.9 % (11.6-15.6); WHITE BLOOD COUNT 11.1 K/mm3 (4.0-10.0)
[2021-03-13 18:30] LABS: BLOOD UREA NITROGEN 13.8 mg/dL (7-18); CALCIUM 9.9 mg/dL (8.5-10.1)
[2021-03-13 18:31] LABS: ALBUMIN 3.8 g/dl (3.4-5.0)
[2021-03-13 18:33] LABS: CREATININE 0.9 mg/dL (0.55-1.3)
[2021-03-13 18:35] LABS: BILIRUBIN,TOTAL 0.2 mg/dL (0.2-1); TOT PROT 7.4 g/dl (6.4-8.2)
[2021-03-13] MEDS: MELATONIN 5 MG TABLETS PO SCH (22:04)
[2021-03-13] MEDS: THIAMINE HCL 100 MG TABLET (FP) PO SCH (22:05)
[2021-03-13] MEDS: ATORVASTATIN CA 10 MG TABLET (FP) PO SCH (22:05)
[2021-03-13] MEDS: NICOTINE 10 MG CARTRIDGE (INHALER) IH PRN (22:08)
[2021-03-14] MEDS: GABAPENTIN 100 MG CAPSULE PO SCH ×3 (06:19→21:59)
[2021-03-14] MEDS: metFORMIN HCL 500 MG TABLET (FP) PO SCH ×2 (06:19→17:47)
[2021-03-14] MEDS ORDERED: INSULIN SLIDING SCALE (NOVOLOG) 1 VIAL SQ ONE (06:36)
[2021-03-14] MEDS: INSULIN (NOVOLOG) ASPART 100 UNITS/ML 10ML VIAL SQ SCH ×3 (07:06→17:47)
[2021-03-14] MEDS ORDERED: methaDONE HCL 10 MG TABLET (FOR DETOX USE ONLY) PO ONE (10:00)
[2021-03-14] MEDS: risperiDONE 1 MG TABLET PO SCH ×2 (10:41→21:59)
[2021-03-14] MEDS: PRENATAL VITAMINS W/ FOLIC ACID TABLET (FP) PO SCH (10:41)
[2021-03-14] MEDS: PANTOPRAZOLE 40 MG TABLET PO SCH (10:41)
[2021-03-14] MEDS: NICOTINE 10 MG CARTRIDGE (INHALER) IH PRN (10:46)
[2021-03-14] MEDS: METHOCARBAMOL 500 MG TABLET PO PRN (17:50)
[2021-03-14] MEDS: diazePAM 5 MG TABLET PO PRN ×2 (17:51→22:01)
[2021-03-14] MEDS: THIAMINE HCL 100 MG TABLET (FP) PO SCH (21:59)
[2021-03-14] MEDS: ATORVASTATIN CA 10 MG TABLET (FP) PO SCH (22:00)
[2021-03-14] MEDS: MELATONIN 5 MG TABLETS PO SCH (22:00)
[2021-03-15] MEDS: GABAPENTIN 100 MG CAPSULE PO SCH ×3 (05:59→22:15)
[2021-03-15] MEDS: hydrOXYzine PAMOATE 25 MG CAPSULE (FP) PO PRN (06:00)
[2021-03-15] MEDS: NICOTINE 10 MG CARTRIDGE (INHALER) IH PRN (06:01)
[2021-03-15] MEDS: metFORMIN HCL 500 MG TABLET (FP) PO SCH ×2 (06:01→17:33)
[2021-03-15] MEDS: INSULIN (NOVOLOG) ASPART 100 UNITS/ML 10ML VIAL SQ SCH ×3 (06:06→17:33)
[2021-03-15] MEDS ORDERED: methaDONE HCL 10 MG TABLET (FOR DETOX USE ONLY) ONE (08:46)
[2021-03-15] MEDS: risperiDONE 1 MG TABLET PO SCH (10:25)
[2021-03-15] MEDS: PRENATAL VITAMINS W/ FOLIC ACID TABLET (FP) PO SCH (10:25)
[2021-03-15] MEDS: PANTOPRAZOLE 40 MG TABLET PO SCH (10:25)
[2021-03-15] MEDS ORDERED: INSULIN SLIDING SCALE (NOVOLOG) 1 VIAL SQ ONE (17:32)
[2021-03-15] MEDS ORDERED: diazePAM 5 MG TABLET PO ONE (18:31)
[2021-03-15] MEDS: ATORVASTATIN CA 10 MG TABLET (FP) PO SCH (22:15)
[2021-03-15] MEDS: THIAMINE HCL 100 MG TABLET (FP) PO SCH (22:15)
[2021-03-15] MEDS: LITHIUM CARBONATE 150 MG CAPSULE PO SCH (22:15)
[2021-03-15] MEDS: risperiDONE 2 MG TABLET PO SCH (22:15)
[2021-03-15] MEDS: MELATONIN 5 MG TABLETS PO SCH (22:15)
[2021-03-16] MEDS: GABAPENTIN 100 MG CAPSULE PO SCH ×3 (07:31→22:07)
[2021-03-16] MEDS: metFORMIN HCL 500 MG TABLET (FP) PO SCH ×2 (07:31→17:49)
[2021-03-16] MEDS: INSULIN (NOVOLOG) ASPART 100 UNITS/ML 10ML VIAL SQ SCH ×3 (07:39→17:51)
[2021-03-16] MEDS: NICOTINE 10 MG CARTRIDGE (INHALER) IH PRN ×2 (07:40→17:50)
[2021-03-16] MEDS: hydrOXYzine PAMOATE 25 MG CAPSULE (FP) PO PRN (09:03)
[2021-03-16] MEDS ORDERED: methaDONE HCL 10 MG TABLET (FOR DETOX USE ONLY) PO ONE (10:00)
[2021-03-16] MEDS: PANTOPRAZOLE 40 MG TABLET PO SCH (10:35)
[2021-03-16] MEDS: PRENATAL VITAMINS W/ FOLIC ACID TABLET (FP) PO SCH (10:35)
[2021-03-16] MEDS: risperiDONE 1 MG TABLET PO SCH (10:35)
[2021-03-16] MEDS: LITHIUM CARBONATE 150 MG CAPSULE PO SCH ×2 (10:35→22:07)
[2021-03-16] MEDS: diazePAM 5 MG TABLET PO PRN (15:42)
[2021-03-16] MEDS: MELATONIN 5 MG TABLETS PO SCH (22:07)
[2021-03-16] MEDS: THIAMINE HCL 100 MG TABLET (FP) PO SCH (22:07)
[2021-03-16] MEDS: ATORVASTATIN CA 10 MG TABLET (FP) PO SCH (22:07)
[2021-03-16] MEDS: risperiDONE 2 MG TABLET PO SCH (22:07)
[2021-03-17] MEDS: GABAPENTIN 100 MG CAPSULE PO SCH (06:32)
[2021-03-17] MEDS: metFORMIN HCL 500 MG TABLET (FP) PO SCH (06:32)
[2021-03-17] MEDS: INSULIN (NOVOLOG) ASPART 100 UNITS/ML 10ML VIAL SQ SCH ×2 (06:36→12:10)
[2021-03-17] MEDS: diazePAM 5 MG TABLET PO PRN (09:09)
[2021-03-17] MEDS: PANTOPRAZOLE 40 MG TABLET PO SCH (10:34)
[2021-03-17] MEDS: risperiDONE 1 MG TABLET PO SCH (10:34)
[2021-03-17] MEDS: PRENATAL VITAMINS W/ FOLIC ACID TABLET (FP) PO SCH (10:34)
[2021-03-17] MEDS: LITHIUM CARBONATE 150 MG CAPSULE PO SCH (10:35)
[2021-03-17 13:23] VITALS: BP 93/61; PULSE 109; TEMP 96.8
== END 2021-03-17 12:47 | disposition other institution (70) | DRG 773 ==
LOC: YASAS 12:52 → Y3N 15:10
PROVIDERS: ADMIT Allergy & Immunology; ATTEND Allergy & Immunology
PROC: HZ2ZZZZ Detoxification Services for Substance Abuse Treatment (ICD-10-PCS; principal; 2021-03-12)
DX: F11.23 Opioid dependence with withdrawal (principal); F10.230 Alcohol dependence with withdrawal, uncomplicated; F14.20 Cocaine dependence, uncomplicated; F12.20 Cannabis dependence, uncomplicated; F17.210 Nicotine dependence, cigarettes, uncomplicated; F19.282 Other psychoactive substance dependence with psychoactive substance-induced sleep disorder; F19.24 Other psychoactive substance dependence with psychoactive substance-induced mood disorder; G62.9 Polyneuropathy, unspecified; E11.9 Type 2 diabetes mellitus without complications; Z79.4 Long term (current) use of insulin; K21.9 Gastro-esophageal reflux disease without esophagitis; M48.061 Spinal stenosis, lumbar region without neurogenic claudication; M79.7 Fibromyalgia; M54.50 Low back pain, unspecified; G89.29 Other chronic pain
CPT/HCPCS: 36415; 80053; 80178; 81025; 82962; 85027; 86780; 90686; 90732; 93005; 93010; C9803; G0008; G0009; J2794; U0003; U0005

== ENCOUNTER 2021-03-17 12:52 | Inpatient (IN) | payer OTHER ==
[2021-03-17] MEDS ORDERED: guaiFENesin 200 MG/10 ML 10 ML UNIT-DOSE CUPS PO PRN (14:49)
[2021-03-17] MEDS ORDERED: P-EPHED 60MG/TRIPROLIDI 2.5MG TABLET PO PRN (14:49)
[2021-03-17] MEDS ORDERED: IBUPROFEN 400 MG TABLET (FP) PO PRN (14:49)
[2021-03-17] MEDS ORDERED: LOPERAMIDE HCL 2 MG CAPSULE PO PRN (14:49)
[2021-03-17] MEDS ORDERED: hydrOXYzine PAMOATE 25 MG CAPSULE (FP) PO PRN (14:49)
[2021-03-17] MEDS ORDERED: ACETAMINOPHEN 325 MG TABLET (FP) PO PRN (14:49)
[2021-03-17] MEDS ORDERED: MAGNESIUM CITRATE 300 ML BOTTLE PO PRN (14:49)
[2021-03-17] MEDS ORDERED: MENTHOL/PHENOL 1 EACH UD MM PRN (14:49)
[2021-03-17] MEDS ORDERED: MAG HYDROX/AL HYDROX/SIMETH 30 ML UNIT-DOSE CUP PO PRN (14:49)
[2021-03-17] MEDS: metFORMIN HCL 500 MG TABLET (FP) PO SCH (17:50)
[2021-03-17] MEDS: INSULIN SLIDING SCALE (NOVOLOG) 1 VIAL SQ SCH (17:51)
[2021-03-17] MEDS: MAGNESIUM HYDROX 2400MG/30ML ORAL SUSPENSION 30 ML CUP PO PRN (18:13)
[2021-03-17] MEDS: MELATONIN 5 MG TABLETS PO SCH (21:04)
[2021-03-17] MEDS: ATORVASTATIN CA 10 MG TABLET (FP) PO SCH (21:05)
[2021-03-17] MEDS: LITHIUM CARBONATE 150 MG CAPSULE PO SCH (21:05)
[2021-03-17] MEDS: risperiDONE 1 MG TABLET PO SCH (21:05)
[2021-03-17] MEDS: THIAMINE HCL 100 MG TABLET (FP) PO SCH (21:06)
[2021-03-17] MEDS: NICOTINE 10 MG CARTRIDGE (INHALER) IH PRN (21:07)
[2021-03-18] MEDS ORDERED: INSULIN (NOVOLOG) ASPART 100 UNITS/ML 10ML VIAL ONE (02:57)
[2021-03-18] MEDS: INSULIN SLIDING SCALE (NOVOLOG) 1 VIAL SQ SCH ×2 (06:34→16:49)
[2021-03-18] MEDS: metFORMIN HCL 500 MG TABLET (FP) PO SCH ×2 (06:35→16:49)
[2021-03-18] MEDS: risperiDONE 1 MG TABLET PO SCH ×2 (10:56→22:02)
[2021-03-18] MEDS: LITHIUM CARBONATE 150 MG CAPSULE PO SCH (10:56)
[2021-03-18] MEDS: PRENATAL VITAMINS W/ FOLIC ACID TABLET (FP) PO SCH (10:56)
[2021-03-18] MEDS: NICOTINE 7 MG/24 HOURS TOPICAL PATCH TD SCH (10:56)
[2021-03-18] MEDS ORDERED: hydrOXYzine PAMOATE 25 MG CAPSULE (FP) PO PRN ×2 (11:41→11:42)
[2021-03-18] MEDS: ATORVASTATIN CA 10 MG TABLET (FP) PO SCH (22:02)
[2021-03-18] MEDS: LITHIUM CARBONATE 300 MG CAPSULE PO SCH (22:02)
[2021-03-18] MEDS: THIAMINE HCL 100 MG TABLET (FP) PO SCH (22:02)
[2021-03-18] MEDS: MELATONIN 5 MG TABLETS PO SCH (22:03)
[2021-03-19] MEDS ORDERED: PT OWN MED DRAWER 7, Y5N ONE (05:18)
[2021-03-19] MEDS: INSULIN SLIDING SCALE (NOVOLOG) 1 VIAL SQ SCH ×2 (06:54→17:00)
[2021-03-19] MEDS: metFORMIN HCL 500 MG TABLET (FP) PO SCH ×2 (06:54→16:58)
[2021-03-19] MEDS: LITHIUM CARBONATE 300 MG CAPSULE PO SCH ×2 (10:08→21:14)
[2021-03-19] MEDS: MAGNESIUM HYDROX 2400MG/30ML ORAL SUSPENSION 30 ML CUP PO PRN (10:08)
[2021-03-19] MEDS: PRENATAL VITAMINS W/ FOLIC ACID TABLET (FP) PO SCH (10:08)
[2021-03-19] MEDS: risperiDONE 1 MG TABLET PO SCH ×2 (10:08→21:14)
[2021-03-19] MEDS: NICOTINE 7 MG/24 HOURS TOPICAL PATCH TD SCH (10:08)
[2021-03-19] MEDS: NICOTINE 10 MG CARTRIDGE (INHALER) IH PRN (17:49)
[2021-03-19] MEDS: THIAMINE HCL 100 MG TABLET (FP) PO SCH (21:13)
[2021-03-19] MEDS: ATORVASTATIN CA 10 MG TABLET (FP) PO SCH (21:14)
[2021-03-19] MEDS: MELATONIN 5 MG TABLETS PO SCH (21:15)
[2021-03-20] MEDS: metFORMIN HCL 500 MG TABLET (FP) PO SCH ×2 (07:02→16:46)
[2021-03-20] MEDS: INSULIN SLIDING SCALE (NOVOLOG) 1 VIAL SQ SCH ×2 (07:02→16:43)
[2021-03-20 07:03] VITALS: BP 100/65; PULSE 93; TEMP 95.5
[2021-03-20] MEDS: NICOTINE 7 MG/24 HOURS TOPICAL PATCH TD SCH (10:37)
[2021-03-20] MEDS: risperiDONE 1 MG TABLET PO SCH (10:37)
[2021-03-20] MEDS: PRENATAL VITAMINS W/ FOLIC ACID TABLET (FP) PO SCH (10:37)
[2021-03-20] MEDS: LITHIUM CARBONATE 300 MG CAPSULE PO SCH (10:38)
== END 2021-03-20 18:30 | disposition left against medical advice (07) | DRG 770 ==
LOC: YASAS 12:52 → Y5N 12:53
PROVIDERS: ADMIT Allergy & Immunology; ATTEND Allergy & Immunology
PROC: HZ42ZZZ Group Counseling for Substance Abuse Treatment, Cognitive-Behavioral (ICD-10-PCS; principal; 2021-03-17)
DX: F11.20 Opioid dependence, uncomplicated (principal); F14.20 Cocaine dependence, uncomplicated; F17.210 Nicotine dependence, cigarettes, uncomplicated; F25.9 Schizoaffective disorder, unspecified; F32.9 Major depressive disorder, single episode, unspecified; F43.10 Post-traumatic stress disorder, unspecified; G62.9 Polyneuropathy, unspecified; G47.00 Insomnia, unspecified; E11.9 Type 2 diabetes mellitus without complications; Z79.4 Long term (current) use of insulin; M79.7 Fibromyalgia
CPT/HCPCS: 82962; J2794

== ENCOUNTER 2021-05-26 15:02 | Inpatient (IN) | payer OTHER ==
[2021-05-26] MEDS ORDERED: P-EPHED 60MG/TRIPROLIDI 2.5MG TABLET PO PRN (17:04)
[2021-05-26] MEDS ORDERED: LOPERAMIDE HCL 2 MG CAPSULE PO PRN (17:04)
[2021-05-26] MEDS ORDERED: ACETAMINOPHEN 325 MG TABLET (FP) PO PRN (17:04)
[2021-05-26] MEDS ORDERED: guaiFENesin 200 MG/10 ML 10 ML UNIT-DOSE CUPS PO PRN (17:04)
[2021-05-26] MEDS ORDERED: MAGNESIUM CITRATE 300 ML BOTTLE PO PRN (17:04)
[2021-05-26] MEDS ORDERED: MAGNESIUM HYDROX 2400MG/30ML ORAL SUSPENSION 30 ML CUP PO PRN (17:04)
[2021-05-26] MEDS ORDERED: IBUPROFEN 400 MG TABLET (FP) PO PRN (17:04)
[2021-05-26 17:21] VITALS: BMI 27.4
[2021-05-26] MEDS: hydrOXYzine PAMOATE 25 MG CAPSULE (FP) PO SCH ×2 (18:34→22:10)
[2021-05-26] MEDS ORDERED: INSULIN (LEVEMIR) 100 UNITS/ML UNITS SQ SCH (22:00)
[2021-05-26] MEDS: MELATONIN 5 MG TABLETS PO SCH (22:10)
[2021-05-26] MEDS: INSULIN (LEVEMIR) 100 UNITS/ML UNITS SQ SCH (22:14)
[2021-05-26] MEDS: THIAMINE HCL 100 MG TABLET (FP) PO SCH (22:17)
[2021-05-26] MEDS: metroNIDAZOLE 0.75% VAGINAL GEL 70 GM TUBE VG SCH (23:39)
[2021-05-27 00:46] LABS: URINE APPEARANCE CLEAR; URINE BILIRUBIN NEGATIVE (NEGATIVE); URINE COLOR YELLOW; URINE GLUCOSE (UA) 2+ (NEGATIVE); URINE KETONE NEGATIVE (NEGATIVE); URINE LEUK ESTERASE NEGATIVE (NEGATIVE); URINE NITRITE NEGATIVE (NEGATIVE); URINE PROTEIN NEGATIVE (NEGATIVE); URINE UROBILINOGEN 0.2 mg/dL (0.2-1.0)
[2021-05-27] MEDS: metFORMIN HCL 500 MG TABLET (FP) PO SCH ×2 (06:48→16:25)
[2021-05-27] MEDS: hydrOXYzine PAMOATE 25 MG CAPSULE (FP) PO SCH ×5 (06:48→22:20)
[2021-05-27] MEDS ORDERED: ERGOCALCIFEROL (VIT D2) 50,000 UNIT (1.25 MG) CAPSULE PO SCH (10:00)
[2021-05-27 10:11] LABS: ALBUMIN 2.7 g/dl (3.4-5.0); CALCIUM 9.3 mg/dL (8.5-10.1); HEMATOCRIT 43.4 % (32.4-45.2); HEMOGLOBIN 15.1 GM/dL (10.7-15.3); MCH 30.7 pg (25.7-33.7); MCHC 34.8 g/dl (32.0-36.0); MEAN CELL VOLUME 88.3 fl (80-96); MEAN PLT VOLUME 9.5 fl (7.5-11.1); PLATELET COUNT 342 10^3/uL (134-434); RBC 4.92 M/mm3 (3.60-5.2); RDW 13.9 % (11.6-15.6); WHITE BLOOD COUNT 7.8 K/mm3 (4.0-10.0)
[2021-05-27 10:12] LABS: BLOOD UREA NITROGEN 8.2 mg/dL (7-18)
[2021-05-27 10:14] LABS: CREATININE 0.6 mg/dL (0.55-1.3)
[2021-05-27 10:15] LABS: BILIRUBIN,TOTAL 0.3 mg/dL (0.2-1); TOT PROT 6.2 g/dl (6.4-8.2)
[2021-05-27] MEDS: PRENATAL VITAMINS W/ FOLIC ACID TABLET (FP) PO SCH (11:11)
[2021-05-27] MEDS: NICOTINE 7 MG/24 HOURS TOPICAL PATCH TD SCH (11:11)
[2021-05-27] MEDS: PANTOPRAZOLE 40 MG TABLET PO SCH (11:12)
[2021-05-27] MEDS: LITHIUM CARBONATE 300 MG CAPSULE PO SCH ×2 (14:39→22:20)
[2021-05-27] MEDS: risperiDONE 1 MG TABLET PO SCH (14:39)
[2021-05-27] MEDS: THIAMINE HCL 100 MG TABLET (FP) PO SCH (22:19)
[2021-05-27] MEDS: INSULIN (LEVEMIR) 100 UNITS/ML UNITS SQ SCH (22:19)
[2021-05-27] MEDS: MELATONIN 5 MG TABLETS PO SCH (22:20)
[2021-05-27] MEDS: risperiDONE 3 MG TABLET PO SCH (22:20)
[2021-05-27] MEDS: metroNIDAZOLE 0.75% VAGINAL GEL 70 GM TUBE VG SCH (22:22)
[2021-05-28] MEDS: metFORMIN HCL 500 MG TABLET (FP) PO SCH ×2 (07:03→16:44)
[2021-05-28] MEDS: hydrOXYzine PAMOATE 25 MG CAPSULE (FP) PO SCH ×5 (07:03→22:05)
[2021-05-28] MEDS: LITHIUM CARBONATE 300 MG CAPSULE PO SCH ×2 (11:05→22:04)
[2021-05-28] MEDS: risperiDONE 1 MG TABLET PO SCH (11:06)
[2021-05-28] MEDS: PANTOPRAZOLE 40 MG TABLET PO SCH (11:06)
[2021-05-28] MEDS: PRENATAL VITAMINS W/ FOLIC ACID TABLET (FP) PO SCH (11:06)
[2021-05-28] MEDS: NICOTINE 7 MG/24 HOURS TOPICAL PATCH TD SCH (11:06)
[2021-05-28] MEDS: NICOTINE 10 MG CARTRIDGE (INHALER) IH PRN (16:46)
[2021-05-28] MEDS: metroNIDAZOLE 0.75% VAGINAL GEL 70 GM TUBE VG SCH (22:04)
[2021-05-28] MEDS: risperiDONE 3 MG TABLET PO SCH (22:04)
[2021-05-28] MEDS: MELATONIN 5 MG TABLETS PO SCH (22:05)
[2021-05-28] MEDS: THIAMINE HCL 100 MG TABLET (FP) PO SCH (22:05)
[2021-05-28] MEDS: INSULIN (LEVEMIR) 100 UNITS/ML UNITS SQ SCH (22:09)
[2021-05-29] MEDS: metFORMIN HCL 500 MG TABLET (FP) PO SCH ×2 (06:58→16:42)
[2021-05-29] MEDS: hydrOXYzine PAMOATE 25 MG CAPSULE (FP) PO SCH ×5 (06:59→21:58)
[2021-05-29] MEDS ORDERED: PT OWN MED DRAWER 7, Y5N ONE (09:30)
[2021-05-29] MEDS: PANTOPRAZOLE 40 MG TABLET PO SCH (10:49)
[2021-05-29] MEDS: PRENATAL VITAMINS W/ FOLIC ACID TABLET (FP) PO SCH (10:49)
[2021-05-29] MEDS: risperiDONE 1 MG TABLET PO SCH (10:49)
[2021-05-29] MEDS: LITHIUM CARBONATE 300 MG CAPSULE PO SCH ×2 (10:49→21:58)
[2021-05-29] MEDS: NICOTINE 7 MG/24 HOURS TOPICAL PATCH TD SCH (10:50)
[2021-05-29] MEDS: NICOTINE 10 MG CARTRIDGE (INHALER) IH PRN (13:52)
[2021-05-29] MEDS: risperiDONE 3 MG TABLET PO SCH (21:58)
[2021-05-29] MEDS: THIAMINE HCL 100 MG TABLET (FP) PO SCH (21:58)
[2021-05-29] MEDS: metroNIDAZOLE 0.75% VAGINAL GEL 70 GM TUBE VG SCH (21:58)
[2021-05-29] MEDS: MELATONIN 5 MG TABLETS PO SCH (21:59)
[2021-05-29] MEDS: INSULIN (LEVEMIR) 100 UNITS/ML UNITS SQ SCH (21:59)
[2021-05-30] MEDS: hydrOXYzine PAMOATE 25 MG CAPSULE (FP) PO SCH ×5 (06:44→22:15)
[2021-05-30] MEDS: metFORMIN HCL 500 MG TABLET (FP) PO SCH ×2 (06:45→16:56)
[2021-05-30] MEDS: LITHIUM CARBONATE 300 MG CAPSULE PO SCH ×2 (10:54→21:29)
[2021-05-30] MEDS: PRENATAL VITAMINS W/ FOLIC ACID TABLET (FP) PO SCH (10:54)
[2021-05-30] MEDS: PANTOPRAZOLE 40 MG TABLET PO SCH (10:55)
[2021-05-30] MEDS: NICOTINE 7 MG/24 HOURS TOPICAL PATCH TD SCH (10:55)
[2021-05-30] MEDS: risperiDONE 1 MG TABLET PO SCH (10:55)
[2021-05-30] MEDS: MAG HYDROX/AL HYDROX/SIMETH 30 ML UNIT-DOSE CUP PO PRN ×2 (10:56→16:59)
[2021-05-30] MEDS ORDERED: PT OWN MED DRAWER 7, Y5N ONE (11:03)
[2021-05-30] MEDS ORDERED: INSULIN (NOVOLOG) ASPART 100 UNITS/ML 10ML VIAL SQ ONE (13:45)
[2021-05-30] MEDS: INSULIN (LEVEMIR) 100 UNITS/ML UNITS SQ SCH (21:29)
[2021-05-30] MEDS: MELATONIN 5 MG TABLETS PO SCH (21:29)
[2021-05-30] MEDS: risperiDONE 3 MG TABLET PO SCH (21:29)
[2021-05-30] MEDS: THIAMINE HCL 100 MG TABLET (FP) PO SCH (21:29)
[2021-05-30] MEDS: NICOTINE 10 MG CARTRIDGE (INHALER) IH PRN (21:33)
[2021-05-30] MEDS: metroNIDAZOLE 0.75% VAGINAL GEL 70 GM TUBE VG SCH (22:15)
[2021-05-31] MEDS: hydrOXYzine PAMOATE 25 MG CAPSULE (FP) PO SCH ×2 (06:45→10:00)
[2021-05-31] MEDS: metFORMIN HCL 500 MG TABLET (FP) PO SCH (07:03)
[2021-05-31 07:34] VITALS: BP 101/67; PULSE 78; TEMP 98.5
[2021-05-31] MEDS: LITHIUM CARBONATE 300 MG CAPSULE PO SCH (10:00)
[2021-05-31] MEDS: NICOTINE 7 MG/24 HOURS TOPICAL PATCH TD SCH (10:00)
[2021-05-31] MEDS: risperiDONE 1 MG TABLET PO SCH (10:00)
[2021-05-31] MEDS: PANTOPRAZOLE 40 MG TABLET PO SCH (10:00)
[2021-05-31] MEDS: PRENATAL VITAMINS W/ FOLIC ACID TABLET (FP) PO SCH (10:00)
== END 2021-05-31 10:10 | disposition home or self-care (01) | DRG 772 ==
LOC: YASAS 15:02 → Y5N 17:22
PROVIDERS: ADMIT Allergy & Immunology; ATTEND Allergy & Immunology
PROC: HZ42ZZZ Group Counseling for Substance Abuse Treatment, Cognitive-Behavioral (ICD-10-PCS; principal; 2021-05-26)
DX: F14.20 Cocaine dependence, uncomplicated (principal); F12.20 Cannabis dependence, uncomplicated; F17.210 Nicotine dependence, cigarettes, uncomplicated; F19.24 Other psychoactive substance dependence with psychoactive substance-induced mood disorder; F19.282 Other psychoactive substance dependence with psychoactive substance-induced sleep disorder; F19.280 Other psychoactive substance dependence with psychoactive substance-induced anxiety disorder; F43.10 Post-traumatic stress disorder, unspecified; E78.5 Hyperlipidemia, unspecified; E11.42 Type 2 diabetes mellitus with diabetic polyneuropathy; Z79.84 Long term (current) use of oral hypoglycemic drugs; K21.9 Gastro-esophageal reflux disease without esophagitis; J45.909 Unspecified asthma, uncomplicated; M79.7 Fibromyalgia; M54.59 Other low back pain; G89.29 Other chronic pain; Z91.51 Personal history of suicidal behavior; Z56.0 Unemployment, unspecified
CPT/HCPCS: 36415; 80053; 80178; 81003; 81025; 82962; 85027; 86780; 87811; C9803; J2794; U0003; U0005